=== PATIENT | female | born 1960 | race Caucasian/White ===

== ENCOUNTER 2017-12-10 08:53 | Outpatient (CLI) | payer BC ==
--- NOTE | 2017-12-24 15:23 | MMO ---
MAMMOGRAM DIGITAL SCREENING BILATERAL: DATE: 12/10/2017 HISTORY: A 57-year-old female for routine bilateral screening mammogram. COMPARISON: 10/18/2016 and 02/12/2015 TECHNIQUE: Digital mammographic views. Computer-aided detection (CAD) utilized. FINDINGS: The breasts are extremely dense, which lowers the sensitivity of mammography. There is no evidence of suspicious mass, suspicious calcifications, or architectural distortion. The re is no significant interval change since the prior mammogram. IMPRESSION: 1) BIRADS 1- Negative. 2) Recommendation: routine bilateral annual screening mammogram (unless the patient develops suspicio us clinical findings that would warrant earlier imaging follow up). [place] [] POS: [facility]
== END 2017-12-10 08:54 | disposition home or self-care (01) ==
LOC: SCSMAMMO 08:53
PROVIDERS: ATTEND Family Medicine
DX: Z12.31 Encounter for screening mammogram for malignant neoplasm of breast (principal)
CPT/HCPCS: 77067

== ENCOUNTER 2018-12-12 08:54 | Outpatient (CLI) | payer BC ==
--- NOTE | 2018-12-12 09:25 | MMO ---
Bilateral MAMMO Bilat Screen [facility]. CLINICAL HISTORY: Patient is 58 years old and is seen for screening. The patient has no family history of breast cancer. The patient has a history of Skin cancer. VIEWS: The views performed were: bilateral craniocaudal and bilateral mediolateral oblique. FILMS COMPARED: The present examination has been compared to prior imaging studies performed at [facility] on 12/10/2017. This study has been interpreted with the assistance of computer-aided detection. MAMMOGRAM FINDINGS: The breasts are extremely dense, which may lower the sensitivity of mammography. There are no suspicious masses, suspicious calcifications, or new areas of architectural distortion. IMPRESSION: THERE IS NO MAMMOGRAPHIC EVIDENCE OF MALIGNANCY. A ROUTINE FOLLOW-UP MAMMOGRAM IN 1 YEAR IS RECOMMENDED. ACR BI-RADS Category 1 - Negative MAMMOGRAPHY NOTE: 1. A negative mammogram report should not delay a biopsy if a dominant of clinically suspicious mass is present. 2. Approximately 10% to 15% of breast cancers are not detected by mammography. 3. Adenosis and dense breasts may obscure an underlying neoplasm. Reported by: ALEXA ZUNIGA MD Electonically Signed: [id number]
== END 2018-12-12 08:55 | disposition home or self-care (01) ==
LOC: SCSMAMMO 08:54
PROVIDERS: ATTEND Physician Assistant
DX: Z12.31 Encounter for screening mammogram for malignant neoplasm of breast (principal)
CPT/HCPCS: 77067

== ENCOUNTER 2022-04-26 15:26 | Outpatient (CLI) | payer BC ==
[2022-04-26 16:26] LABS: #Eosinphils 0.1 10x3/uL (0.0-0.5); #Monocytes 0.7 10x3/uL (0.0-1.1); #Neutrophils 3.9 10x3/uL (1.5-8.4); %Basophils 0.5 % (0.0-2.0); %Eosinophils 1.1 % (0.0-6.0); %Lymphocytes 37.2 % (18.0-47.0); %Monocytes 9.1 % (0.0-10.0); Hemoglobin 13.7 g/dL (12.0-15.5); Mean Corpuscular HGB CONC 34.2 g/dL (32.0-36.0); Mean Corpuscular Volume 96.6 fl (81.6-98.3); Mean Platelet Volume 9.6 fl (7.4-10.4); Platelet Count 315 10x3/uL (150-450); RBC Distribution Width 12.1 % (11.5-14.5); Red Blood Cell (RBC) Count 4.15 10x6/uL (3.90-5.03); White Blood Cell (WBC) Count 7.4 10x3/uL (3.5-10.5)
[2022-04-26 16:40] LABS: Prothrombin Time 10.6 sec (9.5-12.1)
[2022-04-26 16:49] LABS: Anion Gap 10 mmol/L (10-20); BUN (Urea Nitrogen) 15 mg/dL (9.8-20.1); Calc. Creatinine Clearance 0 mL/min (70-130); Calcium 9.7 mg/dL (7.8-10.44); Carbon Dioxide 30 mmol/L (22-29); Chloride 101 mmol/L (98-107); Estimated GFR 90; Glucose 80 mg/dL (70-105); Potassium 4.2 mmol/L (3.5-5.1); Sodium 137 mmol/L (136-145)
== END 2022-04-26 15:27 | disposition home or self-care (01) ==
LOC: LABBT 15:26
PROVIDERS: ATTEND Orthopaedic Surgery
DX: Z01.818 Encounter for other preprocedural examination (principal); M16.11 Unilateral primary osteoarthritis, right hip
CPT/HCPCS: 80048; 85025; 85610; 87081; 93005; 93010

== ENCOUNTER 2022-05-01 05:31 | Observation (INO) | payer BC ==
[2022-04-28 10:46] VITALS: BMI 21.6
[2022-05-01] MEDS ORDERED: Vancomycin 1 GM/200 ML (FROZEN) BAG ONE (05:59)
[2022-05-01] MEDS ORDERED: Sodium Chloride 0.9% 200 ML ONE (05:59)
[2022-05-01] MEDS ORDERED: Tranexamic Acid 1,000 MG/10 ML VIAL ONE (05:59)
[2022-05-01] MEDS ORDERED: CEFAZOLIN 2 GM VIAL ONE (05:59)
[2022-05-01] MEDS ORDERED: Lidocaine 1% MPF 2 ML VIAL ONE (06:12)
[2022-05-01] MEDS ORDERED: Bupivacaine PF 0.5% 30 ML VIAL ONE (06:28)
[2022-05-01] MEDS ORDERED: Propofol 500 MG/50 ML VIAL ONE (06:29)
[2022-05-01] MEDS ORDERED: ePHEDrine 50 MG/ML VIAL ONE (06:34)
[2022-05-01] MEDS ORDERED: Ondansetron PF 4 MG/2 ML Vial ONE (06:34)
[2022-05-01] MEDS ORDERED: Phenylephrine 10 MG/ML VIAL ONE (06:34)
[2022-05-01] MEDS ORDERED: Glycopyrrolate 0.2 MG/ML 5 ML SYRINGE ONE (06:34)
[2022-05-01] MEDS ORDERED: Ropivacaine 0.5% HCl/PF (150 MG/30 ML VIAL) ONE ×2 (06:39→08:25)
[2022-05-01] MEDS ORDERED: FENTANYL 50 MCG/ML 1 ML VIAL ONE (06:39)
[2022-05-01] MEDS ORDERED: Midazolam HCl 2 mg/2 ml Vial ONE (06:39)
[2022-05-01] MEDS ORDERED: Lidocaine 1% PF 5 ML VIAL ONE (06:59)
[2022-05-01] MEDS ORDERED: Ondansetron PF 4 MG/2 ML Vial IVP PRN (07:03)
[2022-05-01] MEDS ORDERED: HYDROcodone/Acetaminophen 10/325 mg Tablet PO PRN (07:03)
[2022-05-01] MEDS ORDERED: Acetaminophen 325 MG TAB PO PRN (07:03)
[2022-05-01] MEDS ORDERED: Zolpidem Tartrate 5 MG TAB PO PRN (07:03)
[2022-05-01] MEDS ORDERED: Promethazine HCl 25 MG/ML VIAL IM PRN ×2 (07:03→08:31)
[2022-05-01] MEDS ORDERED: Fentanyl 100 MCG/2 ML VIAL SLOW IVP PRN ×2 (07:03)
[2022-05-01] MEDS ORDERED: diphenhydrAMINE 25 MG CAP PO PRN (07:03)
[2022-05-01 07:17] LABS: SARS-CoV-2 NAA Rapid Test Not Detected (NotDetected)
[2022-05-01] MEDS ORDERED: Albuterol Sulfate 2.5 mg/3 ml Neb NEB PRN (07:26)
[2022-05-01] MEDS ORDERED: PHENYLEPHRINE-NS 100 MCG/ML 10 ML SYRINGE ONE (07:29)
[2022-05-01] MEDS ORDERED: Promethazine HCl 25 MG/ML VIAL IVPB PRN (08:31)
[2022-05-01] MEDS ORDERED: HYDROmorphone 2 MG/ML VIAL SLOW IVP PRN (08:31)
[2022-05-01] MEDS ORDERED: Meperidine HCl/PF 25 MG/ML VIAL SLOW IVP PRN (08:31)
[2022-05-01] MEDS ORDERED: Non-Formulary Item 1 EACH (Multivit-Min/Iron/Folic/Lutein [Centrum Silver Women] 1 TABLET PO SCH (09:00)
[2022-05-01] MEDS ORDERED: MAGNESIUM CITRATE 125 MG PO SCH (09:00)
[2022-05-01] MEDS ORDERED: Losartan 25 MG TAB PO SCH ×2 (09:00→21:00)
[2022-05-01] MEDS: Aspirin 81 mg Enteric Coated Tablet PO SCH ×2 (10:24→21:02)
[2022-05-01] MEDS: Sodium Chloride 0.9% 1,000 ML IV SCH ×2 (10:24→18:52)
[2022-05-01] MEDS: Ferrous Gluconate 324 MG TAB PO SCH ×2 (10:24→21:01)
[2022-05-01] MEDS: Cholecalciferol 1,000 UNITS (25 MCG) TAB PO SCH (10:25)
[2022-05-01] MEDS: Cyanocobalamin (Vitamin B-12) 1,000 MCG TAB PO SCH (10:25)
[2022-05-01] MEDS: Senokot S 8.6-50 MG TAB PO SCH ×2 (10:25→21:02)
[2022-05-01] MEDS: Multivitamin W/ Minerals 1 TAB PO SCH (10:25)
[2022-05-01] MEDS: HYDROcodone/Acetaminophen 10/325 mg Tablet PO PRN ×2 (12:27→21:02)
[2022-05-01] MEDS: CEFAZOLIN 2 GM in Sodium Chloride 0.9% 100 ML IVPB SCH ×2 (13:28→21:01)
[2022-05-02] MEDS: HYDROcodone/Acetaminophen 10/325 mg Tablet PO PRN ×2 (01:30→05:35)
[2022-05-02] MEDS: Sodium Chloride 0.9% 1,000 ML IV SCH (03:30)
[2022-05-02 06:38] LABS: Hemoglobin 11.4 g/dL (12.0-16.0); Mean Corpuscular HGB CONC 33.4 g/dL (32.0-36.0); Mean Platelet Volume 7.5 fL (7.4-10.4); Platelet Count 224 10x3/uL (130-400); RBC Distribution Width 11.2 % (11.5-14.5); Red Blood Cell (RBC) Count 3.34 mill/uL (4.20-5.40); White Blood Cell (WBC) Count 10.3 10x3/uL (4.8-10.8)
[2022-05-02 07:52] VITALS: TEMP 98.7
[2022-05-02] MEDS: Cholecalciferol 1,000 UNITS (25 MCG) TAB PO SCH (08:43)
[2022-05-02] MEDS: Aspirin 81 mg Enteric Coated Tablet PO SCH (08:43)
[2022-05-02] MEDS: Cyanocobalamin (Vitamin B-12) 1,000 MCG TAB PO SCH (08:43)
[2022-05-02] MEDS: Senokot S 8.6-50 MG TAB PO SCH (08:43)
[2022-05-02] MEDS: Multivitamin W/ Minerals 1 TAB PO SCH (08:44)
[2022-05-02] MEDS: Ferrous Gluconate 324 MG TAB PO SCH (08:44)
[2022-05-02] MEDS ORDERED: Calcium Carbonate 500 MG TAB PO SCH (09:00)
[2022-05-02 11:04] VITALS: BP 113/70
[2022-05-07] MEDS ORDERED: Calcium Carbonate 500 MG TAB PO SCH (09:00)
== END 2022-05-02 10:48 | disposition home or self-care (01) ==
LOC: SDC 05:31 → SURG A 09:41
PROVIDERS: ADMIT Orthopaedic Surgery; ATTEND Orthopaedic Surgery
PROC: 0SR904A Replacement of Right Hip Joint with Ceramic on Polyethylene Synthetic Substitute, Uncemented, Open Approach (ICD-10-PCS; principal; 2022-05-01)
DX: M87.051 Idiopathic aseptic necrosis of right femur (principal); M16.11 Unilateral primary osteoarthritis, right hip; Z87.891 Personal history of nicotine dependence; Z79.899 Other long term (current) drug therapy; Z20.822 Contact with and (suspected) exposure to COVID-19
CPT/HCPCS: 36415; 85027; C1776; J2250; J2370; J2405; J2704; J2795; J3010; J3370-JW; J3490; J7050; S0020; U0002